=== PATIENT | male | born 1995 | race American Indian/Alaskan Native ===

== ENCOUNTER 2018-05-05 19:39 | Emergency (ER) | payer SELFPAY ==
--- NOTE | 2018-05-05 19:45 | Emergency Department Report ---
Blank Doc - Documentation Documentation: This is a 22-year-old male that presents with URI symptoms. Denies any other complaints. This initial assessment diagnostic orders/clinical plan/treatment(s) is/are subject to change based on patient's health status, clinical progression and re- assessment by fellow clinical providers in the ED. Further treatment and workup at subsequent clinical providers discretion. Patient/guardians urged not to elope from ED s their condition may be serious if not clinically assessed and managed. Initial orders include: 1-Patient sent to MAIN for further evaluation and treatment 2- cxr
[2018-05-05 19:47] VITALS: BP 167/93
[2018-05-05] MEDS ORDERED: AUGMENTIN 875 MG PO ONE (22:15)
[2018-05-05] MEDS ORDERED: BENADRYL PO ONE (22:15)
[2018-05-05] MEDS ORDERED: IBUPROFEN PO ONE (22:15)
--- NOTE | 2018-05-05 22:26 | XRay Report ---
FINAL REPORT EXAM: XR CHEST ROUTINE 2V HISTORY: cough TECHNIQUE: Two view chest PA and lateral PRIORS: None. FINDINGS: Cardiac and mediastinal contours are unremarkable. No focal pulmonary infiltrate is identified. No pleural fluid collection seen. Pulmonary vasculature is unremarkable. IMPRESSION: Negative two-view chest
--- NOTE | 2018-05-05 23:33 | Emergency Department Report ---
Addendum entered and electronically signed by DAVID BOOTH NP 05/05/18 23:50: Upper Respiratory Infection Patient Name: MARILYN HUMPHREYS Date of : [birth year] Patient Status: Emergency Emergency Provider: MANOJ CHAMBERLAIN Date: 05/05/18 23:36 Initialization Date: 05/05/18 23:36 - General Chief Complaint: Upper Respiratory Infection Stated Complaint: COLD SX Time Seen by Provider: 05/05/18 19:44 Source: patient Mode of arrival: Ambulatory Limitations: No Limitations - History of Present Illness Initial Comments: pt is a 22 y/o aam who presents sinus pain pressure with sorte throat x3 days pos sick contacts at home children with uri, pt has hx of recurrent sinus infections to usual location intensity and duration as today, maxillary pressure described as 5/10 relieved by nothing, exacerbated by movement position. MD Complaint: sore throat, rhinorrhea, nasal congestion, sinus pain Onset/Timin -: days(s) Severity: moderate Severity scale (0 -10): 5 Quality: sharp, aching Consistency: constant Improves With: rest Worsens With: activity, other (movement ) Context: sick contacts Associated Symptoms: rhinorrhea, nasal congestion, sore throat - Related Data Previous Rx's Medication Instructions Recorded Last Taken Type Amoxicillin/Potassium Clav 1 each PO BID 10 Days #20 tablet 05/05/18 Unknown Rx [Augmentin 875-125 Tablet] Ibuprofen 800 mg PO TID PRN #30 tablet 05/05/18 Unknown Rx Oxymetazoline 0.05% [Afrin] 2 spray NS BID PRN #1 bottle 05/05/18 Unknown Rx diphenhydrAMINE [Benadryl CAP] 25 mg PO Q6HR PRN #30 capsule 05/05/18 Unknown Rx Allergies Allergy/AdvReac Type Severity Reaction Status Date / Time No Known Allergies Allergy Unverified 05/05/18 19:40 ED Review of Systems ROS: Stated complaint: COLD SX Other details as noted in HPI Constitutional: denies: chills, fever Eyes: denies: eye pain, eye discharge, vision change ENT: throat pain, congestion Respiratory: denies: cough, shortness of breath, wheezing Cardiovascular: denies: chest pain, palpitations Endocrine: no symptoms reported Gastrointestinal: denies: abdominal pain, nausea, diarrhea Genitourinary: denies: urgency, dysuria Musculoskeletal: denies: back pain, joint swelling, arthralgia Skin: denies: rash, lesions Neurological: headache. denies: weakness, numbness, paresthesias, vertigo Psychiatric: denies: anxiety, depression Hematological/Lymphatic: denies: easy bleeding, easy bruising ED Past Medical Hx - Past Medical History Previous Medical History?: No - Surgical History Past Surgical History?: No - Social History Smoking Status: Current Every Day Smoker Substance Use Type: Marijuana - Medications Home Medications: Home Medications Medication Instructions Recorded Confirmed Last Taken Type Amoxicillin/Potassium Clav 1 each PO BID 10 Days #20 tablet 05/05/18 Unknown Rx [Augmentin 875-125 Tablet] Ibuprofen 800 mg PO TID PRN #30 tablet 05/05/18 Unknown Rx Oxymetazoline 0.05% [Afrin] 2 spray NS BID PRN #1 bottle 05/05/18 Unknown Rx diphenhydrAMINE [Benadryl CAP] 25 mg PO Q6HR PRN #30 capsule 05/05/18 Unknown Rx ED Physical Exam - General Limitations: No Limitations General appearance: alert, in no apparent distress - Head Head exam: Present: atraumatic, normocephalic - Eye Eye exam: Present: normal appearance, PERRL, EOMI Pupils: Present: normal accommodation - ENT ENT exam: Present: mucous membranes moist, TM's normal bilaterally, normal external ear exam - Expanded ENT Exam Expanded Ear exam: Present: normal external inspection, other (bilat maxillary tenderness to deep palpation no swelling no erythema nose bilat turbinater erythema boggy yellow clear post nasal drip ) Mouth exam: Absent: trismus Teeth exam: Present: normal inspection Throat exam: Positive: tonsillar erythema, tonsillomegaly, other (uvula midline no lesion small white exudate, no stridor no wheezing ). Negative: tonsillar exudate, R peritonsillar mass, L peritonsillar mass - Neck Neck exam: Present: normal inspection, full ROM, lymphadenopathy. Absent: tenderness, meningismus, thyromegaly - Expanded Neck Exam Expanded Neck exam: Absent: tenderness, midline deformity, anterior neck swelling, thyroid mass, carotid bruit, tracheal deviation - Respiratory Respiratory exam: Present: normal lung sounds bilaterally. Absent: respiratory distress, wheezes, stridor, chest wall tenderness - Cardiovascular Cardiovascular Exam: Present: regular rate, normal rhythm, normal heart sounds. Absent: systolic murmur, diastolic murmur, rubs, gallop - GI/Abdominal GI/Abdominal exam: Present: soft, normal bowel sounds - Rectal Rectal exam: Present: deferred - Extremities Exam Extremities exam: Present: normal inspection, full ROM, normal capillary refill. Absent: tenderness - Back Exam Back exam: Present: normal inspection, full ROM, muscle spasm. Absent: tenderness, CVA tenderness (R), CVA tenderness (L) - Neurological Exam Neurological exam: Present: alert, oriented X3, CN II-XII intact, normal gait, reflexes normal ED Course Vital Signs 05/05/18 05/05/18 19:42 22:55 Temperature 98.2 F Pulse Rate 112 H Respiratory 20 16 Rate Blood Pressure 167/93 O2 Sat by Pulse 97 Oximetry ED Medical Decision Making - Medical Decision Making this is sinusitis with URI, plan, augmentin, ibuprofen, afrin nasal spray, benadryl, pt will follow up with pcp in 2-3 days return to ed if symptoms worsen, pt verbalized agreement and understanding of discharge plan pt will be dc'd to home in stable condition at this time, pt verbalized agreement and understanding with discharge plan. Critical care attestation.: If time is entered above; I have spent that time in minutes in the direct care of this critically ill patient, excluding procedure time. ED Disposition Clinical Impression: Sinusitis Qualifiers: Sinusitis location: maxillary Chronicity: acute Recurrence: recurrent Qualified Code(s): J01.01 - Acute recurrent maxillary sinusitis URI (upper respiratory infection) Qualifiers: URI type: unspecified viral URI Qualified Code(s): J06.9 - Acute upper respiratory infection, unspecified Disposition: DC-01 TO HOME OR SELFCARE Condition: Stable Instructions: Sinusitis (ED), Upper Respiratory Infection (ED) Prescriptions: Amoxicillin/Potassium Clav [Augmentin 875-125 Tablet] 1 each PO BID 10 Days #20 tablet diphenhydrAMINE [Benadryl CAP] 25 mg PO Q6HR PRN #30 capsule PRN Reason: sinus congestion Ibuprofen 800 mg PO TID PRN #30 tablet PRN Reason: pain fever Oxymetazoline 0.05% [Afrin] 2 spray NS BID PRN #1 bottle PRN Reason: sinus congestion Referrals: ANTONELLA RUEDA MD [Primary Care Provider] - 3-5 Days Forms: Work/School Release Form(ED) Time of Disposition: 23:49 Original Note: - General Chief Complaint: Upper Respiratory Infection Stated Complaint: COLD SX Time Seen by Provider: 05/05/18 19:44 Source: patient Mode of arrival: Ambulatory Limitations: No Limitations - Related Data Previous Rx's Medication Instructions Recorded Last Taken Type Amoxicillin/Potassium Clav 1 each PO BID 10 Days #20 tablet 05/05/18 Unknown Rx [Augmentin 875-125 Tablet] Ibuprofen 800 mg PO TID PRN #30 tablet 05/05/18 Unknown Rx Oxymetazoline 0.05% [Afrin] 2 spray NS BID PRN #1 bottle 05/05/18 Unknown Rx diphenhydrAMINE [Benadryl CAP] 25 mg PO Q6HR PRN #30 capsule 05/05/18 Unknown Rx Allergies Allergy/AdvReac Type Severity Reaction Status Date / Time No Known Allergies Allergy Unverified 05/05/18 19:40 ED Review of Systems ROS: Stated complaint: COLD SX Other details as noted in HPI ED Past Medical Hx - Past Medical History Previous Medical History?: No - Surgical History Past Surgical History?: No - Social History Smoking Status: Current Every Day Smoker Substance Use Type: Marijuana - Medications Home Medications: Home Medications Medication Instructions Recorded Confirmed Last Taken Type Amoxicillin/Potassium Clav 1 each PO BID 10 Days #20 tablet 05/05/18 Unknown Rx [Augmentin 875-125 Tablet] Ibuprofen 800 mg PO TID PRN #30 tablet 05/05/18 Unknown Rx Oxymetazoline 0.05% [Afrin] 2 spray NS BID PRN #1 bottle 05/05/18 Unknown Rx diphenhydrAMINE [Benadryl CAP] 25 mg PO Q6HR PRN #30 capsule 05/05/18 Unknown Rx ED Physical Exam - General Limitations: No Limitations ED Course Vital Signs 05/05/18 05/05/18 19:42 22:55 Temperature 98.2 F Pulse Rate 112 H Respiratory 20 16 Rate Blood Pressure 167/93 O2 Sat by Pulse 97 Oximetry Critical care attestation.: If time is entered above; I have spent that time in minutes in the direct care of this critically ill patient, excluding procedure time. ED Disposition Clinical Impression: Sinusitis Qualifiers: Sinusitis location: maxillary Chronicity: acute Recurrence: recurrent Qualified Code(s): J01.01 - Acute recurrent maxillary sinusitis URI (upper respiratory infection) Qualifiers: URI type: unspecified viral URI Qualified Code(s): J06.9 - Acute upper respiratory infection, unspecified Disposition: - TO HOME OR SELFCARE Is pt being admited?: No Does the pt Need Aspirin: No Condition: Stable Instructions: Sinusitis (ED), Upper Respiratory Infection (ED) Prescriptions: Amoxicillin/Potassium Clav [Augmentin 875-125 Tablet] 1 each PO BID 10 Days #20 tablet diphenhydrAMINE [Benadryl CAP] 25 mg PO Q6HR PRN #30 capsule PRN Reason: sinus congestion Ibuprofen 800 mg PO TID PRN #30 tablet PRN Reason: pain fever Oxymetazoline 0.05% [Afrin] 2 spray NS BID PRN #1 bottle PRN Reason: sinus congestion Referrals: ANTONELLA RUEDA MD [Primary Care Provider] - 3-5 Days Forms: Work/School Release Form(ED) Time of Disposition: 23:33
--- NOTE | 2018-05-05 23:40 | Emergency Department Report ---
- General Chief Complaint: Upper Respiratory Infection Stated Complaint: COLD SX Time Seen by Provider: 05/05/18 19:44 Source: patient Mode of arrival: Ambulatory Limitations: No Limitations - History of Present Illness Initial Comments: pt is a 22 y/o aam who presents sinus pain pressure with sorte throat x3 days pos sick contacts at home children with uri, pt has hx of recurrent sinus infections to usual location intensity and duration as today, maxillary pressure described as 5/10 relieved by nothing, exacerbated by movement position. MD Complaint: sore throat, rhinorrhea, nasal congestion, sinus pain Onset/Timin -: days(s) Severity: moderate Severity scale (0 -10): 5 Quality: sharp, aching Consistency: constant Improves With: rest Worsens With: activity, other (movement ) Context: sick contacts Associated Symptoms: rhinorrhea, nasal congestion, sore throat - Related Data Previous Rx's Medication Instructions Recorded Last Taken Type Amoxicillin/Potassium Clav 1 each PO BID 10 Days #20 tablet 05/05/18 Unknown Rx [Augmentin 875-125 Tablet] Ibuprofen 800 mg PO TID PRN #30 tablet 05/05/18 Unknown Rx Oxymetazoline 0.05% [Afrin] 2 spray NS BID PRN #1 bottle 05/05/18 Unknown Rx diphenhydrAMINE [Benadryl CAP] 25 mg PO Q6HR PRN #30 capsule 05/05/18 Unknown Rx Allergies Allergy/AdvReac Type Severity Reaction Status Date / Time No Known Allergies Allergy Unverified 05/05/18 19:40 ED Review of Systems ROS: Stated complaint: COLD SX Other details as noted in HPI Constitutional: denies: chills, fever Eyes: denies: eye pain, eye discharge, vision change ENT: throat pain, congestion Respiratory: denies: cough, shortness of breath, wheezing Cardiovascular: denies: chest pain, palpitations Endocrine: no symptoms reported Gastrointestinal: denies: abdominal pain, nausea, diarrhea Genitourinary: denies: urgency, dysuria Musculoskeletal: denies: back pain, joint swelling, arthralgia Skin: denies: rash, lesions Neurological: headache. denies: weakness, numbness, paresthesias, vertigo Psychiatric: denies: anxiety, depression Hematological/Lymphatic: denies: easy bleeding, easy bruising ED Past Medical Hx - Past Medical History Previous Medical History?: No - Surgical History Past Surgical History?: No - Social History Smoking Status: Current Every Day Smoker Substance Use Type: Marijuana - Medications Home Medications: Home Medications Medication Instructions Recorded Confirmed Last Taken Type Amoxicillin/Potassium Clav 1 each PO BID 10 Days #20 tablet 05/05/18 Unknown Rx [Augmentin 875-125 Tablet] Ibuprofen 800 mg PO TID PRN #30 tablet 05/05/18 Unknown Rx Oxymetazoline 0.05% [Afrin] 2 spray NS BID PRN #1 bottle 05/05/18 Unknown Rx diphenhydrAMINE [Benadryl CAP] 25 mg PO Q6HR PRN #30 capsule 05/05/18 Unknown Rx ED Physical Exam - General Limitations: No Limitations General appearance: alert, in no apparent distress - Head Head exam: Present: atraumatic, normocephalic - Eye Eye exam: Present: normal appearance, PERRL, EOMI Pupils: Present: normal accommodation - ENT ENT exam: Present: mucous membranes moist, TM's normal bilaterally, normal external ear exam - Expanded ENT Exam Expanded Ear exam: Present: normal external inspection, other (bilat maxillary tenderness to deep palpation no swelling no erythema nose bilat turbinater erythema boggy yellow clear post nasal drip ) Mouth exam: Absent: trismus Teeth exam: Present: normal inspection Throat exam: Positive: tonsillar erythema, tonsillomegaly, other (uvula midline no lesion small white exudate, no stridor no wheezing ). Negative: tonsillar exudate, R peritonsillar mass, L peritonsillar mass - Neck Neck exam: Present: normal inspection, full ROM, lymphadenopathy. Absent: tenderness, meningismus, thyromegaly - Expanded Neck Exam Expanded Neck exam: Absent: tenderness, midline deformity, anterior neck swelling, thyroid mass, carotid bruit, tracheal deviation - Respiratory Respiratory exam: Present: normal lung sounds bilaterally. Absent: respiratory distress, wheezes, stridor, chest wall tenderness - Cardiovascular Cardiovascular Exam: Present: regular rate, normal rhythm, normal heart sounds. Absent: systolic murmur, diastolic murmur, rubs, gallop - GI/Abdominal GI/Abdominal exam: Present: soft, normal bowel sounds - Rectal Rectal exam: Present: deferred - Extremities Exam Extremities exam: Present: normal inspection, full ROM, normal capillary refill. Absent: tenderness - Back Exam Back exam: Present: normal inspection, full ROM, muscle spasm. Absent: tenderness, CVA tenderness (R), CVA tenderness (L) - Neurological Exam Neurological exam: Present: alert, oriented X3, CN II-XII intact, normal gait, reflexes normal ED Course Vital Signs 05/05/18 05/05/18 19:42 22:55 Temperature 98.2 F Pulse Rate 112 H Respiratory 20 16 Rate Blood Pressure 167/93 O2 Sat by Pulse 97 Oximetry ED Medical Decision Making - Medical Decision Making this is sinusitis with URI, plan, augmentin, ibuprofen, afrin nasal spray, benadryl, pt will follow up with pcp in 2-3 days return to ed if symptoms worsen, pt verbalized agreement and understanding of discharge plan pt will be dc'd to home in stable condition at this time, pt verbalized agreement and understanding with discharge plan. Critical care attestation.: If time is entered above; I have spent that time in minutes in the direct care of this critically ill patient, excluding procedure time. ED Disposition Clinical Impression: Sinusitis Qualifiers: Sinusitis location: maxillary Chronicity: acute Recurrence: recurrent Qualified Code(s): J01.01 - Acute recurrent maxillary sinusitis URI (upper respiratory infection) Qualifiers: URI type: unspecified viral URI Qualified Code(s): J06.9 - Acute upper respiratory infection, unspecified Disposition: DC-01 TO HOME OR SELFCARE Condition: Stable Instructions: Sinusitis (ED), Upper Respiratory Infection (ED) Prescriptions: Amoxicillin/Potassium Clav [Augmentin 875-125 Tablet] 1 each PO BID 10 Days #20 tablet diphenhydrAMINE [Benadryl CAP] 25 mg PO Q6HR PRN #30 capsule PRN Reason: sinus congestion Ibuprofen 800 mg PO TID PRN #30 tablet PRN Reason: pain fever Oxymetazoline 0.05% [Afrin] 2 spray NS BID PRN #1 bottle PRN Reason: sinus congestion Referrals: ANTONELLA RUEDA MD [Primary Care Provider] - 3-5 Days Forms: Work/School Release Form(ED) Time of Disposition: 23:49
== END 2018-05-06 00:14 | disposition home or self-care (01) ==
LOC: ED 19:39
DX: J01.01 Acute recurrent maxillary sinusitis (principal); J06.9 Acute upper respiratory infection, unspecified
CPT/HCPCS: 71046

== ENCOUNTER 2018-05-19 17:02 | Emergency (ER) | payer OTHER ==
--- NOTE | 2018-05-19 17:26 | Emergency Department Report ---
Blank Doc - Documentation Documentation: This is a 22-year-old male that presents with URI symptoms x3 weeks. This initial assessment/diagnostic orders/clinical plan/treatment(s) is/are subject to change based on patient's health status, clinical progression and re- assessment by fellow clinical providers in the ED. Further treatment and workup at subsequent clinical providers discretion. Patient/guardians urged not to elope from the ED as their condition may be serious if not clinically assessed and managed. Initial orders include: 1- Patient sent to [facility] for further evaluation and treatment 2- CXR
[2018-05-19 17:29] VITALS: BP 150/83
--- NOTE | 2018-05-19 18:20 | XRay Report ---
PROCEDURE: XR CHEST ROUTINE 2V TECHNIQUE: Chest 2 views HISTORY: cough COMPARISONS: FINDINGS: Cardiac and mediastinal contours are unremarkable. No focal pulmonary infiltrate identified. No pleur al fluid collection seen. The pulmonary vasculature is unremarkable. IMPRESSION: No acute abnormality identified in the chest. This document is electronically signed by Miguel Blackmon MD., May 19 2018 06:17:43 PM ET
--- NOTE | 2018-05-19 19:43 | Emergency Department Report ---
- General Chief Complaint: Upper Respiratory Infection Stated Complaint: BODY PAIN Time Seen by Provider: 05/19/18 17:26 Source: patient Mode of arrival: Ambulatory Limitations: No Limitations - History of Present Illness Initial Comments: 22-year-old -Portuguese male presents to the emergency room for complaint of body pains cough feels like he has his lungs are clogged. Patient was seen here on 05/05/2018 and was treated with Augmentin Benadryl Afrin and ibuprofen. Patient reports he is taking all medications and has completed. Patient reports that he feels it could be his work condition as he works in cold environment. Patient has taken nothing for this cough recently. Patient denies any nausea vomiting fever or chills. Past medical history of non-current medication is none no known drug allergies. MD Complaint: cough -: week(s) (1) Quality: aching Consistency: intermittent Improves With: nothing (cough) Worsens With: other (cough and began in a cold environment) Associated Symptoms: cough. denies: fever, chills, rhinorrhea, nasal congestion, sore throat, nausea, vomiting, diarrhea Treatments Prior to Arrival: none - Related Data Previous Rx's Medication Instructions Recorded Last Taken Type Amoxicillin/Potassium Clav 1 each PO BID 10 Days #20 tablet 05/05/18 Unknown Rx [Augmentin 875-125 Tablet] Ibuprofen 800 mg PO TID PRN #30 tablet 05/05/18 Unknown Rx Oxymetazoline 0.05% [Afrin] 2 spray NS BID PRN #1 bottle 05/05/18 Unknown Rx diphenhydrAMINE [Benadryl CAP] 25 mg PO Q6HR PRN #30 capsule 05/05/18 Unknown Rx Allergies Allergy/AdvReac Type Severity Reaction Status Date / Time No Known Allergies Allergy Unverified 05/05/18 19:40 ED Review of Systems ROS: Stated complaint: BODY PAIN Other details as noted in HPI Comment: All other systems reviewed and negative ED Past Medical Hx - Past Medical History Previous Medical History?: No - Surgical History Past Surgical History?: No - Social History Smoking Status: Never Smoker Substance Use Type: Marijuana - Medications Home Medications: Home Medications Medication Instructions Recorded Confirmed Last Taken Type Amoxicillin/Potassium Clav 1 each PO BID 10 Days #20 tablet 05/05/18 Unknown Rx [Augmentin 875-125 Tablet] Ibuprofen 800 mg PO TID PRN #30 tablet 05/05/18 Unknown Rx Oxymetazoline 0.05% [Afrin] 2 spray NS BID PRN #1 bottle 05/05/18 Unknown Rx diphenhydrAMINE [Benadryl CAP] 25 mg PO Q6HR PRN #30 capsule 05/05/18 Unknown Rx ED Physical Exam - General Limitations: No Limitations General appearance: alert, in no apparent distress - Head Head exam: Present: atraumatic, normocephalic - Eye Eye exam: Present: normal appearance - ENT ENT exam: Present: mucous membranes moist - Neck Neck exam: Present: normal inspection - Respiratory Respiratory exam: Present: normal lung sounds bilaterally. Absent: respiratory distress - Cardiovascular Cardiovascular Exam: Present: regular rate, normal rhythm. Absent: systolic murmur, diastolic murmur, rubs, gallop - GI/Abdominal GI/Abdominal exam: Present: soft, normal bowel sounds - Rectal Rectal exam: Present: deferred - Extremities Exam Extremities exam: Present: normal inspection - Back Exam Back exam: Present: normal inspection - Neurological Exam Neurological exam: Present: alert, oriented X3 - Psychiatric Psychiatric exam: Present: normal affect, normal mood - Skin Skin exam: Present: warm, dry, intact, normal color. Absent: rash ED Course Vital Signs 05/19/18 17:27 Temperature 98.2 F Pulse Rate 98 H Respiratory 18 Rate Blood Pressure 150/83 O2 Sat by Pulse 97 Oximetry ED Medical Decision Making - Radiology Data Radiology results: report reviewed Patient: MARILYN HUMPHREYS MR #: [id number] : 1995 Acct:[id number] Age/Sex: 22 / M ADM Date: 05/19/18 Loc: ED Attending Dr: Ordering Physician: CHRISTIANA CAPELLAN NP Date of Service: 05/19/18 Procedure(s): XR chest routine 2V Accession Number(s): [id number] cc: CHRISTIANA CAPELLAN NP Fluoro Time In Minutes: PROCEDURE: XR CHEST ROUTINE 2V TECHNIQUE: Chest 2 views HISTORY: cough COMPARISONS: FINDINGS: Cardiac and mediastinal contours are unremarkable. No focal pulmonary infiltrate identified. No pleural fluid collection seen. The pulmonary vasculature is unremarkable. IMPRESSION: No acute abnormality identified in the chest. This document is electronically signed by Miguel Javier MD., May 19 2018 06:17:43 PM ET Transcribed By: MELVIN Dictated By: RENARD JAVIER MD Electronically Authenticated By: RENARD JAVIER MD Signed Date/Time: 05/19/181819 DD/ 09 TD/TT: 05/19/181810 - Medical Decision Making Patient has been evaluated by this provider in fast track. Patient has recently completed a dose of antibiotics. Chest x-ray within normal limits. Recommend patient to take [id number] Claritin or Zyrtec for postnasal drip that could be causing his cough. Patient also try [id number] Mucinex or Robitussin. Patient is increase his water intake he can take peat-[id number]-[id number] Tylenol or Motrin for pain. Patient is recommended to follow-up with [facility] for symptoms persist or gets worse. Critical care attestation.: If time is entered above; I have spent that time in minutes in the direct care of this critically ill patient, excluding procedure time. ED Disposition Clinical Impression: Cough in adult patient Disposition: DC-01 TO HOME OR SELFCARE Is pt being admited?: No Does the pt Need Aspirin: No Condition: Stable Instructions: Antihistamine/Antitussive (By mouth), Guaifenesin (By mouth) Additional Instructions: Please take avcy-afo-whzlcxg Claritin or Zyrtec as well as either Robitussin or Mucinex he can take Tylenol or Motrin for pain management. If her symptoms persist please follow up with [facility] I have listed their information below for your convenience. Forms: Work/School Release Form(ED)
== END 2018-05-19 20:08 | disposition home or self-care (01) ==
LOC: ED 17:02
DX: R05 Cough (principal); M79.10 Myalgia, unspecified site; F12.10 Cannabis abuse, uncomplicated
CPT/HCPCS: 71046; 99283

== ENCOUNTER 2018-07-29 18:17 | Emergency (ER) | payer SELFPAY ==
--- NOTE | 2018-07-29 18:39 | Emergency Department Report ---
Chief Complaint: Extremity Injury, Lower Stated Complaint: LT KNEE INJURY Time Seen by Provider: 07/29/18 18:38 - HPI History of Present Illness: sp fall on left knee yesterday pmh none rx none psh none cig etoh thc ambulatory MSE screening note: Focused history and physical exam performed. Due to findings the following was ordered: ED Disposition for MSE Condition: Stable
--- NOTE | 2018-07-29 19:41 | XRay Report ---
PROCEDURE: XR KNEE 3V LT TECHNIQUE: 3 views of the left knee HISTORY: knee pain sp fall COMPARISONS: FINDINGS: No fracture identified. No dislocation seen. No evidence for joint effusion. Joint spaces are within normal limits. IMPRESSION: . Negative knee series This document is electronically signed by Miguel Blackmon MD., Jul 29 2018 07:39:12 PM ET
--- NOTE | 2018-07-29 20:00 | Emergency Department Report ---
ED Lower Extremity HPI - General Chief Complaint: Extremity Injury, Lower Stated Complaint: LT KNEE INJURY Time Seen by Provider: 07/29/18 18:38 Source: patient Mode of arrival: Ambulatory Limitations: No Limitations - History of Present Illness Initial Comments: 22-year-old -[place] male comes in reporting that he failed 2 days ago and busted his knee. Patient reports that he needed a work excuse so he can return back to work. She has no past medical history takes no medications on a daily basis and has no known drug allergies. Patient denies any discharge redness or swelling to the knee. Patient reports that the pain is worse with walking. Patient reported to Tylenol which she reports didn't help but only taken one dose. MD Complaint: knee injury -: days(s) (2) Injury: Knee: Left Place: work Severity: severe Severity scale (0 -10): 10 Improves With: nothing Worsens With: movement Context: fall Associated Symptoms: ambulatory - Related Data Previous Rx's Medication Instructions Recorded Last Taken Type Amoxicillin/Potassium Clav 1 each PO BID 10 Days #20 tablet 05/05/18 Unknown Rx [Augmentin 875-125 Tablet] Ibuprofen [Ibuprofen 800] 800 mg PO TID PRN #30 tablet 05/05/18 Unknown Rx Oxymetazoline 0.05% [Afrin] 2 spray NS BID PRN #1 bottle 05/05/18 Unknown Rx diphenhydrAMINE [Benadryl CAP] 25 mg PO Q6HR PRN #30 capsule 05/05/18 Unknown Rx Allergies Allergy/AdvReac Type Severity Reaction Status Date / Time No Known Allergies Allergy Verified 07/29/18 18:18 ED Review of Systems ROS: Stated complaint: LT KNEE INJURY Other details as noted in HPI Comment: All other systems reviewed and negative Constitutional: denies: chills, fever Eyes: denies: eye pain, eye discharge, vision change ENT: denies: ear pain, throat pain Skin: rash ED Past Medical Hx - Past Medical History Previous Medical History?: No - Surgical History Past Surgical History?: No - Social History Smoking Status: Current Every Day Smoker Substance Use Type: None - Medications Home Medications: Home Medications Medication Instructions Recorded Confirmed Last Taken Type Amoxicillin/Potassium Clav 1 each PO BID 10 Days #20 tablet 05/05/18 Unknown Rx [Augmentin 875-125 Tablet] Ibuprofen [Ibuprofen 800] 800 mg PO TID PRN #30 tablet 05/05/18 Unknown Rx Oxymetazoline 0.05% [Afrin] 2 spray NS BID PRN #1 bottle 05/05/18 Unknown Rx diphenhydrAMINE [Benadryl CAP] 25 mg PO Q6HR PRN #30 capsule 05/05/18 Unknown Rx ED Physical Exam - General Limitations: No Limitations General appearance: alert, in no apparent distress - Head Head exam: Present: atraumatic, normocephalic - Eye Eye exam: Present: normal appearance - ENT ENT exam: Present: mucous membranes moist - Neurological Exam Neurological exam: Present: alert, oriented X3 - Psychiatric Psychiatric exam: Present: normal affect, normal mood - Skin Skin exam: Present: abrasion (left kneeabrasion on the left knee with full range of motion no swelling not erythematous non-edematous. Abrasion appears to be old. No discharge coming from abrasion. Abrasion is dry.) ED Course Vital Signs 07/29/18 07/29/18 18:37 20:12 Temperature 98.2 F 98.4 F Pulse Rate 78 75 Respiratory 20 17 Rate Blood Pressure 171/97 Blood Pressure 140/78 [Left] O2 Sat by Pulse 97 98 Oximetry ED Lower Extremity MDM - Radiology Data Radiology results: report reviewed Left knee normal examination - Medical Decision Making Patient has been evaluated by this provider and faster. Patient has an abrasion on the left knee with full range of motion no swelling not erythematous non-edematous. Abrasion appears to be old. No discharge coming from abrasion. Abrasion is dry. He is to follow up with his primary care provider has any other concerns. Critical care attestation.: If time is entered above; I have spent that time in minutes in the direct care of this critically ill patient, excluding procedure time. ED Disposition Clinical Impression: Abrasion of left knee Qualifiers: Encounter type: initial encounter Qualified Code(s): S80.212A - Abrasion, left knee, initial encounter Disposition: TO HOME OR SELFCARE Is pt being admited?: No Does the pt Need Aspirin: No Condition: Stable Instructions: Abrasion (ED) Additional Instructions: Patient can take [id number] ibuprofen and Advil or Aleve for pain management. Keep the abrasion clean and dry. Forms: Work/School Release Form(ED)
[2018-07-29 20:13] VITALS: BP 140/78
== END 2018-07-29 20:49 | disposition home or self-care (01) ==
LOC: ED 18:17
DX: S80.212A Abrasion, left knee, initial encounter (principal); F17.200 Nicotine dependence, unspecified, uncomplicated; X58.XXXA Exposure to other specified factors, initial encounter; Y93.89 Activity, other specified; Y92.89 Other specified places as the place of occurrence of the external cause; Y99.8 Other external cause status

== ENCOUNTER 2018-08-21 21:00 | Emergency (ER) | payer SELFPAY ==
[2018-08-21 21:09] VITALS: BP 162/88
--- NOTE | 2018-08-21 21:10 | Emergency Department Report ---
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
[2018-08-21] MEDS ORDERED: IBUPROFEN PO ONE (21:38)
[2018-08-21] MEDS ORDERED: SOLU-Medrol IM ONE (21:38)
--- NOTE | 2018-08-21 22:08 | XRay Report ---
PROCEDURE: XR CHEST ROUTINE 2V TECHNIQUE: PA and lateral chest radiographs were obtained. HISTORY: cough COMPARISONS: CXR 05/19/2018. FINDINGS: Heart: Normal. Mediastinum/Vessels: Normal. Lungs/Pleural space: Normal. Bony thorax: No acute osseous abnormality. IMPRESSION: No acute cardiopulmonary process seen. No change. This document is electronically signed by Stephanie Ferguson MD., August 21 2018 10:06:01 PM ET
--- NOTE | 2018-08-21 22:16 | Emergency Department Report ---
- General Chief Complaint: Upper Respiratory Infection Stated Complaint: SINUS PAIN Time Seen by Provider: 08/21/18 21:07 Source: patient Mode of arrival: Ambulatory Limitations: No Limitations - History of Present Illness Initial Comments: Patient is a 22-year-old -Micron[place] male with no past medical history presents to the ED with complaint of acute onset persistent frontal sinus pressure and headache, dry cough and pleuritic chest wall pain, nasal congestion and diffuse body aches for the last 3 weeks. Patient states that there is a lot of dust in the air and chemicals they work with at work that have not made his symptoms any better. Patient denies dizziness, nausea, vomiting, chest pain, shortness of breath, change in vision, neck pain, fever, chills, hearing loss or nosebleed and sore throat. MD Complaint: cough, rhinorrhea, nasal congestion, sinus pain, other (frontal sinus pressure and headache) -: Gradual, week(s) (3) Severity: severe Severity scale (0 -10): 7 Quality: sharp, aching Consistency: constant Improves With: nothing Worsens With: nothing Context: other (Environmental triggers at work) Associated Symptoms: headache, rhinorrhea, nasal congestion, cough, chest pain (pleuritic). denies: fever, chills, myalgias, diaphoresis, sore throat, stiff neck, shortness of breath, abdominal pain, nausea, vomiting, diarrhea, dysuria, rash, confusion, right sweats, weight loss, epistaxis, hoarseness, ear pain Treatments Prior to Arrival: none - Related Data Previous Rx's Medication Instructions Recorded Last Taken Type Ibuprofen [Ibuprofen 800] 800 mg PO TID PRN #30 tablet 05/05/18 Unknown Rx Oxymetazoline 0.05% [Afrin] 2 spray NS BID PRN #1 bottle 05/05/18 Unknown Rx diphenhydrAMINE [Benadryl CAP] 25 mg PO Q6HR PRN #30 capsule 05/05/18 Unknown Rx ALBUTEROL Inhaler (OR & NICU) 1 - 2 puff IH Q6H PRN #1 inhalation 08/21/18 Unknown Rx [ProAir HFA Inhaler] Amoxicillin/Potassium Clav 1 each PO Q12H 10 Days #20 tablet 08/21/18 Unknown Rx [Augmentin 875-125 Tablet] Benzonatate [Tessalon Perles] 100 mg PO Q8HR #30 capsule 08/21/18 Unknown Rx Ibuprofen [Motrin] 800 mg PO Q8HR PRN #20 tablet 08/21/18 Unknown Rx Prednisone [predniSONE 10 mg 10 mg PO .TAPER #21 tab.ds.pk 08/21/18 Unknown Rx (6-Day Pack, 21 Tabs)] Allergies Allergy/AdvReac Type Severity Reaction Status Date / Time No Known Allergies Allergy Verified 07/29/18 18:18 ED Review of Systems ROS: Stated complaint: SINUS PAIN Other details as noted in HPI Comment: All other systems reviewed and negative Constitutional: denies: chills, fever Eyes: denies: eye pain, eye discharge, vision change ENT: congestion, other (frontal sinus pressure and headache). denies: ear pain, throat pain, dental pain, hearing loss Respiratory: cough. denies: shortness of breath, SOB with exertion, SOB at rest, wheezing, other Cardiovascular: chest pain (pleuritic chest wall pain). denies: palpitations Endocrine: no symptoms reported Gastrointestinal: denies: abdominal pain, nausea, vomiting, diarrhea, hematemesis, hematochezia Genitourinary: denies: urgency, dysuria, frequency, hematuria, testicular pain, testicular mass Musculoskeletal: denies: back pain, joint swelling, arthralgia Skin: denies: rash, lesions, change in color, change in hair/nails Neurological: headache (frontal sinus headache). denies: weakness, numbness, paresthesias, confusion, abnormal gait, vertigo Psychiatric: denies: anxiety, depression, auditory hallucinations, visual hallucinations, homicidal thoughts Hematological/Lymphatic: denies: easy bleeding, easy bruising ED Past Medical Hx - Past Medical History Previous Medical History?: No - Surgical History Past Surgical History?: No - Social History Smoking Status: Current Every Day Smoker Substance Use Type: None - Medications Home Medications: Home Medications Medication Instructions Recorded Confirmed Last Taken Type Ibuprofen [Ibuprofen 800] 800 mg PO TID PRN #30 tablet 05/05/18 Unknown Rx Oxymetazoline 0.05% [Afrin] 2 spray NS BID PRN #1 bottle 05/05/18 Unknown Rx diphenhydrAMINE [Benadryl CAP] 25 mg PO Q6HR PRN #30 capsule 05/05/18 Unknown Rx ALBUTEROL Inhaler (OR & NICU) 1 - 2 puff IH Q6H PRN #1 inhalation 08/21/18 Unknown Rx [ProAir HFA Inhaler] Amoxicillin/Potassium Clav 1 each PO Q12H 10 Days #20 tablet 08/21/18 Unknown Rx [Augmentin 875-125 Tablet] Benzonatate [Tessalon Perles] 100 mg PO Q8HR #30 capsule 08/21/18 Unknown Rx Ibuprofen [Motrin] 800 mg PO Q8HR PRN #20 tablet 08/21/18 Unknown Rx Prednisone [predniSONE 10 mg 10 mg PO .TAPER #21 tab.ds.pk 08/21/18 Unknown Rx (6-Day Pack, 21 Tabs)] ED Physical Exam - General Limitations: No Limitations General appearance: alert, in no apparent distress - Head Head exam: Present: atraumatic, normocephalic, normal inspection - Eye Eye exam: Present: normal appearance, PERRL, EOMI. Absent: scleral icterus, conjunctival injection, nystagmus, periorbital swelling - ENT ENT exam: Present: normal exam, normal orophraynx, mucous membranes moist, TM's normal bilaterally, normal external ear exam, other (palpable tenderness on frontal sinus and grossly congested nasal passages) - Neck Neck exam: Present: normal inspection, full ROM. Absent: tenderness, meningismus, lymphadenopathy - Respiratory Respiratory exam: Present: normal lung sounds bilaterally. Absent: respiratory distress, wheezes, rales, rhonchi, chest wall tenderness, accessory muscle use, decreased breath sounds, prolonged expiratory - Cardiovascular Cardiovascular Exam: Present: regular rate, normal rhythm, normal heart sounds. Absent: systolic murmur, diastolic murmur, rubs, gallop - GI/Abdominal GI/Abdominal exam: Present: soft, normal bowel sounds. Absent: distended, tenderness, guarding, rigid, hyperactive bowel sounds, hypoactive bowel sounds, organomegaly - Rectal Rectal exam: Present: deferred - Extremities Exam Extremities exam: Present: normal inspection, full ROM, normal capillary refill - Back Exam Back exam: Present: normal inspection, full ROM. Absent: tenderness, CVA tenderness (R), CVA tenderness (L), muscle spasm - Neurological Exam Neurological exam: Present: alert, oriented X3, CN II-XII intact, normal gait, reflexes normal - Psychiatric Psychiatric exam: Present: normal affect, normal mood. Absent: depressed, anxious, suicidal ideation - Skin Skin exam: Present: warm, dry, intact, normal color. Absent: rash ED Course Vital Signs 08/21/18 21:06 Temperature 97.8 F Pulse Rate 84 Respiratory 18 Rate Blood Pressure 162/88 O2 Sat by Pulse 100 Oximetry - Reevaluation(s) Reevaluation #1: 08/21/18 22:32 Patient is alert and oriented 3 and is not in any distress. Chest x-ray shows no acute cardiopulmonary abnormalities. Patient was treated in the ED with Solu-Medrol and pain medications, and on reevaluation, patient felt better and was discharged home on medications. Patient's symptoms are likely due to reactive airway disease from exposure to environmental dust and chemicals in his work environment. Patient advised to return to the ED immediately if symptoms get worse otherwise follow-up with his primary care physician in 7-10 days for reevaluation. ED Medical Decision Making - Radiology Data Radiology results: report reviewed, image reviewed Chest x-ray is unremarkable and shows no acute cardiopulmonary abnormalities - Medical Decision Making Patient is alert and oriented 3 and is not in distress. Head CT scan shows significant chronic sinusitis in the ethmoid, sphenoid and maxillary sinuses but there is no acute intracranial abnormalities or hemorrhages noted in the imaging test. Lab tests results were reviewed and are significant for acute leukocytosis 13,700. The rest of the lab test results are unremarkable. Patient was also treated with Rocephin 1 g IV in the ED for the chronic sinusit is. Patient was treated for headache in the ED and on reevaluation, patient's headache has resolved, patient resting comfortably in the bed in no acute distress. Patient discharged home on medications and otherwise follow-up with his care physician in 7-10 days for reevaluation. Patient was advised to return to the ED immediately if symptoms get worse. - Differential Diagnosis Reactive airway disease; Acute bronchitis; Acute sinusitis Critical care attestation.: If time is entered above; I have spent that time in minutes in the direct care of this critically ill patient, excluding procedure time. ED Disposition Clinical Impression: Acute upper respiratory infection Acute bronchitis Qualifiers: Bronchitis organism: unspecified organism Qualified Code(s): J20.9 - Acute bronchitis, unspecified Acute maxillary sinusitis Qualifiers: Recurrence: non-recurrent Qualified Code(s): J01.00 - Acute maxillary sinusitis, unspecified Disposition: DC-01 TO HOME OR SELFCARE Is pt being admited?: No Does the pt Need Aspirin: No Condition: Stable Instructions: Sinusitis (ED), Upper Respiratory Infection (ED), Acute Bronchitis (ED) Additional Instructions: Take medications as needed, drink plenty of fluids and follow-up with your primary care physician in 7-10 days for reevaluation. Return to the ED immediately if symptoms get worse. Prescriptions: Amoxicillin/Potassium Clav [Augmentin 875-125 Tablet] 1 each PO Q12H 10 Days #20 tablet Ibuprofen [Motrin] 800 mg PO Q8HR PRN #20 tablet PRN Reason: Pain , Severe (7-10) Prednisone [predniSONE 10 mg (6-Day Pack, 21 Tabs)] 10 mg PO .TAPER #21 tab.ds.pk ALBUTEROL Inhaler (OR & NICU) [ProAir HFA Inhaler] 1 - 2 puff IH Q6H PRN #1 inhalation PRN Reason: Shortness Of Breath Benzonatate [Tessalon Perles] 100 mg PO Q8HR #30 capsule Referrals: ANTONELLA RUEDA MD [Primary Care Provider] - 3-5 Days Time of Disposition: 22:13 Print Language: KOREAN
== END 2018-08-21 22:42 | disposition home or self-care (01) ==
LOC: ED 21:00
DX: J06.9 Acute upper respiratory infection, unspecified (principal); J20.9 Acute bronchitis, unspecified; J32.2 Chronic ethmoidal sinusitis; J32.3 Chronic sphenoidal sinusitis; J32.0 Chronic maxillary sinusitis; F17.200 Nicotine dependence, unspecified, uncomplicated
CPT/HCPCS: 71046; 96372; 99283; J2930

== ENCOUNTER 2019-07-22 09:53 | Emergency (ER) | payer SELFPAY ==
[2019-07-22 10:01] VITALS: BP 144/87
== END 2019-07-22 10:00 | disposition left against medical advice (07) ==
LOC: ED 09:53
DX: R10.9 Unspecified abdominal pain (principal); R11.2 Nausea with vomiting, unspecified; Z53.21 Procedure and treatment not carried out due to patient leaving prior to being seen by health care provider

== ENCOUNTER 2020-01-11 13:24 | Emergency (ER) | payer SELFPAY ==
[2020-01-11 13:45] VITALS: BP 148/93
--- NOTE | 2020-01-11 16:36 | XRay Report ---
CHEST PA AND LATERAL VIEWS INDICATION: cough,fever. COMPARISON: 08/21/2018 FINDINGS: Support devices: None Heart: Normal and unchanged Lungs/Pleura: No acute pulmonary or pleural findings. Minimal scarring in the right base. IMPRESSION: 1. No acute disease and no interval change. Signer Name: Larry Harmon MD Signed: 01/11/2020 4:32 PM Workstation Name: [id number]
[2020-01-11 22:57] LABS: Basophils # (Auto) 0.1 K/mm3 (0.0-0.1); Basophils % (Auto) 0.7 % (0.0-1.8); Eosinophils # (Auto) 0.4 K/mm3 (0.0-0.4); Eosinophils % (Auto) 5.2 % (0.0-4.3); Hematocrit 45.3 % (35.5-45.6); Hemoglobin 15.5 gm/dl (11.8-15.2); Lymphocytes # (Auto) 3.5 K/mm3 (1.2-5.4); Lymphocytes % (Auto) 44.6 % (13.4-35.0); Mean Corpuscular HGB Conc 34 % (32-34); Mean Corpuscular Volume 93 fl (84-94); Monocytes # (Auto) 0.5 K/mm3 (0.0-0.8); Monocytes % (Auto) 6.7 % (0.0-7.3); Platelet Count 359 K/mm3 (140-440); Red Blood Count 4.86 M/mm3 (3.65-5.03); Red Cell Distribution Width 12.7 % (13.2-15.2)
[2020-01-11 23:19] LABS: Alanine Aminotransferase 32 units/L (7-56); Albumin 4.5 g/dL (3.9-5); BUN/Creatinine Ratio 16; Blood Urea Nitrogen 13 mg/dL (9-20); Calcium 9.4 mg/dL (8.4-10.2); Hemolysis Index 83
--- NOTE | 2020-01-12 | Cat Scan Report ---
CT OF THE ABDOMEN AND PELVIS WITH INTRAVENOUS CONTRAST INDICATION / CLINICAL INFORMATION: Lower abdominal pain. TECHNIQUE: The patient received 100 cc Omnipaque [address] scans at this location are performed using CT dose reduction for ALARA by means of automated exposure control. COMPARISON: None available. FINDINGS: ABDOMEN: The liver, spleen, gallbladder, bile ducts, pancreas, adrenal glands, kidneys and bowel demo nstrate no significant abnormality. No adenopathy is seen. There are minimal chronic appearing parenc hymal changes in the right lateral lung base. PELVIS: The distal ureters, urinary bladder, prostate gland and seminal vesicles are normal. A normal appendix is present and there is no evidence of diverticulitis. No abnormal mass or fluid collection is seen. I do not identify a hernia. No acute osseous abnormality is seen. IMPRESSION: No acute abnormality is identified. Signer Name: Mark Sheikh MD Signed: 01/11/2020 11:56 PM Workstation Name: [id number]
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
== END 2020-01-12 03:10 | disposition home or self-care (01) ==
LOC: ED 13:24
DX: B34.9 Viral infection, unspecified (principal); F17.200 Nicotine dependence, unspecified, uncomplicated; Z79.4 Long term (current) use of insulin; Z79.2 Long term (current) use of antibiotics; Z79.899 Other long term (current) drug therapy; Z91.011 Allergy to milk products
CPT/HCPCS: 36415; 71046; 74177; 80053; 83690; 85025; 99284; Q9967

== ENCOUNTER 2020-06-25 09:52 | Emergency (ER) | payer SELFPAY | END 2020-06-25 11:35 | disposition left against medical advice (07) | LOC: ED 09:52 | DX: M54.2 Cervicalgia (principal); Z53.21 Procedure and treatment not carried out due to patient leaving prior to being seen by health care provider ==

== ENCOUNTER 2021-11-14 12:23 | Emergency (ER) | payer SELFPAY ==
[2021-11-14 14:45] VITALS: BP 139/96
[2021-11-14] MEDS ORDERED: TETANUS,DIPH,PERTUSS(ACELL) VACCINE 0.5 ML SYRINGE IM ONE (15:15)
[2021-11-14] MEDS ORDERED: SODIUM CHLORIDE 0.9% IRR 500 ML BOTTLE IR ONE (15:15)
[2021-11-14] MEDS ORDERED: LIDOCAINE (1%) 10 MG/1 ML VIAL 20 ML MDV INFILTRATI ONE (15:15)
[2021-11-14] MEDS ORDERED: HYDROcodone/ACETAMINOPHEN 5-325 MG TAB PO SCH (15:15)
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
== END 2021-11-14 16:24 | disposition home or self-care (01) ==
LOC: ED 12:23
DX: S81.011A Laceration without foreign body, right knee, initial encounter (principal); F17.200 Nicotine dependence, unspecified, uncomplicated; Z91.011 Allergy to milk products; W45.8XXA Other foreign body or object entering through skin, initial encounter; Y93.89 Activity, other specified; Y92.89 Other specified places as the place of occurrence of the external cause; Y99.8 Other external cause status
CPT/HCPCS: 90471; 90715; 99282

== ENCOUNTER 2021-11-21 17:46 | Emergency (ER) | payer SELFPAY | END 2021-11-21 23:52 | disposition left against medical advice (07) | LOC: ED 17:46 | DX: Z48.02 Encounter for removal of sutures (principal); Z53.21 Procedure and treatment not carried out due to patient leaving prior to being seen by health care provider ==

== ENCOUNTER 2021-11-22 10:48 | Emergency (ER) | payer SELFPAY ==
[2021-11-22 11:01] VITALS: BP 151/88
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
== END 2021-11-22 11:42 | disposition home or self-care (01) ==
LOC: ED 10:48
DX: S81.011D Laceration without foreign body, right knee, subsequent encounter (principal); F17.200 Nicotine dependence, unspecified, uncomplicated; X58.XXXD Exposure to other specified factors, subsequent encounter
CPT/HCPCS: 99282